=== PATIENT | female | born 1990 | race African-American/Black ===

== ENCOUNTER 2017-11-11 16:45 | Emergency (ER) | payer OTHER ==
[~2017-11-11] VITALS: Ht 170.2 cm; Wt 59.0 kg
[2017-11-11] MEDS ORDERED: PRENATAL MULTI1 EAC6 PO (17:41)
[2018-01-07] MEDS ORDERED: REGLAN 10 MG TA10 MG PO (15:30)
[2018-05-21] MEDS ORDERED: FLAGYL500 MG PO (01:53)
== END 2017-11-11 17:56 | disposition home or self-care (01) ==
LOC: ER 16:45
DX: O9A.211 Injury, poisoning and certain other consequences of external causes complicating pregnancy, first trimester (principal); S00.93XA Contusion of unspecified part of head, initial encounter; S70.01XA Contusion of right hip, initial encounter; Z3A.14 14 weeks gestation of pregnancy; W00.0XXA Fall on same level due to ice and snow, initial encounter; Y93.89 Activity, other specified; Y92.89 Other specified places as the place of occurrence of the external cause; Y99.8 Other external cause status

== ENCOUNTER 2017-11-15 17:26 | Emergency (ER) | payer OTHER ==
[~2017-11-15] VITALS: Ht 170.2 cm; Wt 61.2 kg
[~2017-11-15 17:26] MED LIST: PRENATAL MULTI1 EAC6 PO
[2017-11-15 17:58] LABS: ABSOLUTE NEUTROPHILS 3.1 thou/uL (1.4-8.2); BASOPHILS 2.3 % (0.0-2.0); EOSINOPHILS 1.8 % (0.0-3.0); HEMATOCRIT 36.9 % (37.0-47.0); LYMPHOCYTES 38.5 % (24.0-44.0); MCH 23.6 pg (26.0-34.0); MCHC 32.4 g/dL (28.0-37.0); MCV 72.8 fL (80.0-100.0); MONOCYTES 9.7 % (1.0-8.0); PLATELET COUNT 261 thou/uL (150-400); POLYS 47.7 % (36.0-66.0); RBC 5.08 mil/uL (4.20-5.00); RDW 21.4 % (10.5-14.5); WBC 6.6 thou/uL (4.0-11.0)
[2017-11-15 18:35] LABS: ANISOCYTOSIS 1+; HYPOCHROMASIA 1+
[2018-01-07] MEDS ORDERED: REGLAN 10 MG TA10 MG PO (15:30)
[2018-05-21] MEDS ORDERED: FLAGYL500 MG PO (01:53)
== END 2017-11-15 20:00 | disposition home or self-care (01) ==
LOC: ER 17:26
PROVIDERS: Physician Assistant
DX: O20.0 Threatened abortion (principal)

== ENCOUNTER 2018-03-01 10:42 | Emergency (ER) | payer OTHER ==
[~2018-03-01] VITALS: Ht 170.2 cm; Wt 63.5 kg
[~2018-03-01 10:42] MED LIST changes: +REGLAN 10 MG TA10 MG PO
[2018-03-01] MEDS ORDERED: BACTRIM DS TAB1 EACH PO (11:15)
[2018-03-01] MEDS ORDERED: KEFLEX500 M1 PO (11:15)
[2018-03-01 11:25] VITALS: BP 104/79
== END 2018-03-01 11:30 | disposition home or self-care (01) ==
LOC: ER 10:42
DX: N76.4 Abscess of vulva (principal)

== ENCOUNTER 2018-07-19 11:38 | Emergency (ER) | payer OTHER ==
[~2018-07-19] VITALS: Ht 170.2 cm; Wt 77.1 kg
[~2018-07-19 11:38] MED LIST changes: +BACTRIM DS TAB1 EACH PO; +FLAGYL500 MG PO; +KEFLEX500 M1 PO
[2018-07-19 13:10] VITALS: BP 100/62
== END 2018-07-19 13:11 | disposition home or self-care (01) ==
LOC: ER 11:38
DX: O9A.213 Injury, poisoning and certain other consequences of external causes complicating pregnancy, third trimester (principal); S93.402A Sprain of unspecified ligament of left ankle, initial encounter; W01.198A Fall on same level from slipping, tripping and stumbling with subsequent striking against other object, initial encounter; Y93.89 Activity, other specified; Y92.89 Other specified places as the place of occurrence of the external cause; Y99.8 Other external cause status

== ENCOUNTER 2018-10-21 09:17 | Emergency (ER) | payer OTHER ==
[~2018-10-21] VITALS: Ht 167.6 cm; Wt 69.4 kg
[2018-10-21] MEDS ORDERED: MEDROLDOSEPACK PO (10:27)
[2018-10-21 11:10] VITALS: BP 129/63
== END 2018-10-21 11:11 | disposition home or self-care (01) ==
LOC: ER 09:17
DX: M79.642 Pain in left hand (principal); G58.8 Other specified mononeuropathies

== ENCOUNTER 2018-12-05 11:32 | Emergency (ER) | payer OTHER ==
[~2018-12-05] VITALS: Ht 160 cm; Wt 68.0 kg
[~2018-12-05 11:32] MED LIST changes: +MEDROLDOSEPACK PO
[2018-12-05] MEDS ORDERED: BUTALB-APAP-CA1 EACH PO (13:08)
[2018-12-05] MEDS ORDERED: MOBIC7.5 MG PO (13:08)
[2018-12-05 14:05] VITALS: BP 119/81
== END 2018-12-05 14:09 | disposition home or self-care (01) ==
LOC: ER 11:32
DX: S09.8XXA Other specified injuries of head, initial encounter (principal); M54.5 Low back pain; V49.59XA Passenger injured in collision with other motor vehicles in traffic accident, initial encounter; Y93.89 Activity, other specified; Y99.8 Other external cause status; Y92.89 Other specified places as the place of occurrence of the external cause

== ENCOUNTER 2019-01-18 08:46 | Emergency (ER) | payer OTHER ==
[~2019-01-18] VITALS: Ht 167.6 cm; Wt 66.7 kg
[~2019-01-18 08:46] MED LIST changes: +BUTALB-APAP-CA1 EACH PO; +MOBIC7.5 MG PO
[2019-01-18 08:49] VITALS: BP 123/53
== END 2019-01-18 10:20 | disposition home or self-care (01) ==
LOC: ER 08:46
DX: S96.811A Strain of other specified muscles and tendons at ankle and foot level, right foot, initial encounter (principal); W01.0XXA Fall on same level from slipping, tripping and stumbling without subsequent striking against object, initial encounter; Y92.89 Other specified places as the place of occurrence of the external cause; Y93.89 Activity, other specified; Y99.8 Other external cause status

== ENCOUNTER 2021-07-04 12:16 | Emergency (ER) | payer OTHER ==
[~2021-07-04] VITALS: Ht 170.2 cm; Wt 63.5 kg
[2021-07-04 14:03] LABS: HEMATOCRIT 40.6 % (37.0-47.0); HEMOGLOBIN 12.9 gm/dL (12.0-15.0); MCH 26.4 pg (26.0-34.0); MCHC 31.8 g/dL (28.0-37.0); RBC 4.9 mil/uL (4.20-5.00); RDW 13.7 % (10.5-14.5); WBC 4.2 thou/uL (4.0-11.0)
[2021-07-04 14:38] LABS: CALCIUM 8.7 mg/dL (8.5-10.1); CREATININE 0.7 mg/dL (0.6-1.0); POTASSIUM 3.6 mmol/L (3.5-5.1)
[2021-07-04 15:19] VITALS: BP 107/72
== END 2021-07-04 15:22 | disposition home or self-care (01) ==
LOC: ER 12:16
PROVIDERS: Nurse Practitioner Family
DX: N93.9 Abnormal uterine and vaginal bleeding, unspecified (principal); R42 Dizziness and giddiness; Z86.16 Personal history of COVID-19

== ENCOUNTER 2021-07-08 13:54 | Emergency (ER) | payer OTHER ==
[~2021-07-08] VITALS: Ht 170.2 cm; Wt 63.5 kg
[2021-07-08 13:58] VITALS: BP 113/56
== END 2021-07-08 14:14 | disposition home or self-care (01) ==
LOC: ER 13:54
DX: R20.0 Anesthesia of skin (principal); Z86.16 Personal history of COVID-19

== ENCOUNTER 2021-09-11 09:06 | Emergency (ER) | payer OTHER ==
[~2021-09-11] VITALS: Ht 167.6 cm; Wt 61.2 kg
[2021-09-11 10:43] VITALS: BP 122/70
== END 2021-09-11 15:19 | disposition home or self-care (01) ==
LOC: ER 09:06
DX: S63.502A Unspecified sprain of left wrist, initial encounter (principal); Z86.16 Personal history of COVID-19; Z98.890 Other specified postprocedural states; W01.0XXA Fall on same level from slipping, tripping and stumbling without subsequent striking against object, initial encounter; Y93.89 Activity, other specified; Y92.89 Other specified places as the place of occurrence of the external cause; Y99.8 Other external cause status

== ENCOUNTER 2021-10-21 12:32 | Emergency (ER) | payer OTHER ==
[~2021-10-21] VITALS: Ht 165.1 cm; Wt 72.6 kg
[2021-10-21 13:49] LABS: URINE BILIRUBIN NEGATIVE (Negative); URINE BLOOD NEGATIVE (Negative); URINE CLARITY CLEAR; URINE COLOR YELLOW; URINE GLUCOSE-RANDOM* NEGATIVE (Negative); URINE KETONES NEGATIVE (Negative); URINE LEUKOCYTES-REFLEX NEGATIVE (Negative); URINE NITRITE-REFLEX NEGATIVE (Negative); URINE PROTEIN (DIPSTICK) NEGATIVE (Negative); URINE SPECIFIC GRAVITY 1.025 (1.005-1.035)
[2021-10-21 13:52] LABS: ABSOLUTE NEUTROPHILS 1.9 thou/uL (1.4-8.2); BASOPHILS 3.3 % (0.0-2.0); EOSINOPHILS 1.3 % (0.0-3.0); HEMATOCRIT 40.5 % (37.0-47.0); HEMOGLOBIN 13.1 gm/dL (12.0-15.0); LYMPHOCYTES 40.4 % (24.0-44.0); MCH 26.7 pg (26.0-34.0); MCHC 32.3 g/dL (28.0-37.0); MCV 82.9 fL (80.0-100.0); PLATELET COUNT 232 thou/uL (150-400); RBC 4.88 mil/uL (4.20-5.00); RDW 12.8 % (10.5-14.5); WBC 4.1 thou/uL (4.0-11.0)
[2021-10-21 14:00] LABS: CREATININE 0.5 mg/dL (0.6-1.0); POTASSIUM 3.9 mmol/L (3.5-5.1)
[2021-10-21 14:06] LABS: ALBUMIN 3.8 g/dL (3.4-5.0); TOTAL PROTEIN 7.6 g/dL (6.4-8.2)
[2021-10-21 17:15] VITALS: BP 112/76
== END 2021-10-21 17:15 | disposition home or self-care (01) ==
LOC: ER 12:32
PROVIDERS: Nurse Practitioner
DX: O20.0 Threatened abortion (principal); Z3A.01 Less than 8 weeks gestation of pregnancy